=== PATIENT | male | born 1980 | race Caucasian/White ===

== ENCOUNTER 2017-09-26 10:25 | Emergency (ER) | payer MEDICAID ==
[~2017-09-26] VITALS: Ht 185.4 cm; Wt 86.4 kg
[~2017-09-26 10:25] MED LIST: ALBU8.5H5 INH; AMOX1TAB64 PO; HYDR-3240 PO; RIVA10TA PO; WARF10TA PO
[2017-09-26] MEDS ORDERED: ARIP10TA33 PO (11:16)
[2017-09-26] MEDS ORDERED: LORazepam 2 MG/ML, 1ML IVPush ONE (12:00)
[2017-09-26] MEDS ORDERED: SODIUM CHLORIDE FLUSH 10ML SYR IVF ONE (12:00)
[2017-09-26] MEDS ORDERED: ONDANSETRON 2MG/ML, 2ML IVPush ONE (12:00)
[2017-09-26] MEDS ORDERED: SODIUM CHLORIDE 0.9% 1,000ML IVBOLUS ONE (12:00)
[2017-09-26] MEDS ORDERED: LORazepam 2 MG/ML, 1ML ONE (12:17)
[2017-09-26] MEDS ORDERED: ONDANSETRON 2MG/ML, 2ML ONE (12:17)
[2017-09-26 12:51] LABS: INTERNATIONAL NORMALIZED RATIO 1.12 (0.93-1.1); PROTHROMBIN TIME 11.6 Seconds (9.6-11.5)
[2017-09-26 12:57] LABS: MICROSCOPIC NOT IND
[2017-09-26 12:57] LABS: ALBUMIN 3.7 g/dL (3.4-5.0); ANION GAP 14 mmol/L (5-15); CALCIUM 8.7 mg/dL (8.5-10.1); CHLORIDE 94 mmol/L (98-107)
[2017-09-26 13:00] LABS: ALANINE AMINOTRANSFERASE 40 U/L (12-78); ALKALINE PHOSPHATASE 94 U/L (45-117); BILIRUBIN,TOTAL 0.9 mg/dL (0.2-1.0); TOTAL PROTEIN 7.6 g/dL (6.4-8.2)
[2017-09-26 13:01] LABS: ACETONE, SERUM Negative (Negative)
[2017-09-26 13:04] LABS: CULTURE INDICATED? NO
[2017-09-26 13:24] LABS: BASOPHILS # (AUTO) 0.03 x10^3/uL (0-0.1); BASOPHILS % (AUTO) 0 % (0-1); EOSINOPHILS % (AUTO) 0 % (1-7); LYMPHOCYTES # (AUTO) 2.25 x10^3/uL (1-3.4); LYMPHOCYTES % (AUTO) 28 % (22-44); MD NO; MEAN CORPUSCULAR HEMOGLOBIN 31.5 pg (27.5-34.5); MEAN CORPUSCULAR HGB CONC 34.4 g/dL (33.2-36.2); MEAN CORPUSCULAR VOLUME 91.6 fL (81-97); MEAN PLATELET VOLUME 9.5 fL (7.4-10.4); MONOCYTES # (AUTO) 0.61 x10^3/uL (0.2-0.8); MONOCYTES % (AUTO) 8 % (2-9); NEUTROPHILS # (AUTO) 5.16 x10^3/uL (1.8-6.8); NEUTROPHILS % (AUTO) 64 % (42-75); PLATELET COUNT 175 x10^3/uL (130-400); RED BLOOD COUNT 5.64 x10^6/uL (4.38-5.82); RED CELL DISTRIBUTION WIDTH 12.8 % (9.4-14.8)
[2017-09-26] MEDS ORDERED: LORazepam 1MG TABLET ONE (13:25)
[2017-09-26] MEDS ORDERED: POTASSIUM CHLORIDE 20 MEQ TAB.ER.PRT ONE (13:25)
[2017-09-26] MEDS ORDERED: LORazepam 1MG TABLET PO ONE (13:30)
[2017-09-26] MEDS ORDERED: POTASSIUM CHLORIDE 20 MEQ TAB.ER.PRT PO ONE (13:30)
[2017-09-26] MEDS ORDERED: SODIUM CHLORIDE 0.9% 1,000 ML IV ONE (13:30)
[2017-09-26 14:29] VITALS: BP 119/69
== END 2017-09-26 14:42 | disposition home or self-care (01) ==
LOC: ED 11:14
DX: F10.239 Alcohol dependence with withdrawal, unspecified (principal); R45.1 Restlessness and agitation; E86.0 Dehydration; E87.6 Hypokalemia; Z86.711 Personal history of pulmonary embolism; Z86.718 Personal history of other venous thrombosis and embolism
CPT/HCPCS: 36415; 80053; 81003; 82010; 83605; 83690; 85025; 85610; 93005; 96361; 96374; 96375; 99285; J2060; J2405; J7030

== ENCOUNTER 2017-11-22 15:04 | Emergency (ER) | payer MEDICAID ==
[~2017-11-22] VITALS: Ht 185.4 cm; Wt 84.6 kg
[~2017-11-22 15:04] MED LIST changes: +ARIP10TA33 PO
[2017-11-22 15:10] VITALS: BP 144/96
[2017-11-22] MEDS ORDERED: THIAMINE 100MG TABLET PO ONE (16:00)
== END 2017-11-22 16:06 | disposition left against medical advice (07) ==
LOC: ED 16:00
DX: F10.129 Alcohol abuse with intoxication, unspecified (principal)
CPT/HCPCS: 99283

== ENCOUNTER 2018-03-10 15:40 | Emergency (ER) | payer MEDICAID ==
[~2018-03-10] VITALS: Ht 185.4 cm; Wt 87.5 kg
[2018-03-10] MEDS ORDERED: LORazepam 2 MG/ML, 1ML ONE (16:26)
[2018-03-10] MEDS ORDERED: ONDANSETRON 2MG/ML, 2ML ONE (16:26)
[2018-03-10] MEDS ORDERED: SODIUM CHLORIDE FLUSH 10ML SYR IVF ONE (16:30)
[2018-03-10] MEDS ORDERED: FOLIC ACID 1 MG TABLET PO ONE (16:30)
[2018-03-10] MEDS ORDERED: SODIUM CHLORIDE 0.9% 1,000ML IVBOLUS ONE ×2 (16:30→17:30)
[2018-03-10] MEDS ORDERED: THIAMINE 100MG TABLET PO ONE (16:30)
[2018-03-10] MEDS ORDERED: LORazepam 2 MG/ML, 1ML IVPush ONE (16:30)
[2018-03-10] MEDS ORDERED: ONDANSETRON 2MG/ML, 2ML IVPush ONE (16:30)
[2018-03-10 16:37] LABS: BASOPHILS # (AUTO) 0.04 x10^3/uL (0-0.1); BASOPHILS % (AUTO) 1 % (0-1); EOSINOPHILS # (AUTO) 0.02 x10^3/uL (0-0.4); EOSINOPHILS % (AUTO) 0 % (1-7); LYMPHOCYTES # (AUTO) 2.78 x10^3/uL (1-3.4); LYMPHOCYTES % (AUTO) 29 % (22-44); MD NO; MEAN CORPUSCULAR HEMOGLOBIN 31.8 pg (27.5-34.5); MEAN CORPUSCULAR HGB CONC 33.4 g/dL (33.2-36.2); MEAN CORPUSCULAR VOLUME 95.4 fL (81-97); MEAN PLATELET VOLUME 8.6 fL (7.4-10.4); MONOCYTES # (AUTO) 0.64 x10^3/uL (0.2-0.8); MONOCYTES % (AUTO) 7 % (2-9); NEUTROPHILS # (AUTO) 6.28 x10^3/uL (1.8-6.8); NEUTROPHILS % (AUTO) 64 % (42-75); PLATELET COUNT 219 x10^3/uL (130-400); RED BLOOD COUNT 5.97 x10^6/uL (4.38-5.82); RED CELL DISTRIBUTION WIDTH 13.3 % (9.4-14.8)
[2018-03-10] MEDS ORDERED: FOLIC ACID 1 MG TABLET ONE (16:39)
[2018-03-10] MEDS ORDERED: THIAMINE 100MG TABLET ONE (16:39)
[2018-03-10 16:47] LABS: ALANINE AMINOTRANSFERASE 49 U/L (12-78); ALBUMIN 3.8 g/dL (3.4-5.0); ANION GAP 10 mmol/L (5-15); CALCIUM 8.9 mg/dL (8.5-10.1); CHLORIDE 104 mmol/L (98-107); CREATININE 1.03 mg/dL (0.7-1.3)
[2018-03-10 16:50] LABS: ALKALINE PHOSPHATASE 166 U/L (45-117); BILIRUBIN,TOTAL 0.5 mg/dL (0.2-1.0); TOTAL PROTEIN 8.5 g/dL (6.4-8.2)
[2018-03-10 17:54] VITALS: BP 142/88
== END 2018-03-10 18:33 | disposition home or self-care (01) ==
LOC: ED 18:05
DX: F10.220 Alcohol dependence with intoxication, uncomplicated (principal); F19.129 Other psychoactive substance abuse with intoxication, unspecified; J45.909 Unspecified asthma, uncomplicated; Z79.899 Other long term (current) drug therapy
CPT/HCPCS: 36415; 80053; 80307; 83690; 85025; 93005; 96374; 96375; 99285; J2060; J2405; J7030

== ENCOUNTER 2018-04-29 10:59 | Emergency (ER) | payer MEDICAID ==
[~2018-04-29] VITALS: Ht 182.9 cm; Wt 90.7 kg
[2018-04-29 11:03] VITALS: BP 139/98
[2018-04-29] MEDS ORDERED: THIAMINE 100MG TABLET PO ONE (11:30)
[2018-04-29] MEDS ORDERED: FOLIC ACID 1 MG TABLET PO ONE (11:30)
[2018-04-29] MEDS ORDERED: LORazepam 1MG TABLET PO ONE (11:30)
[2018-04-29] MEDS ORDERED: THIAMINE 100MG TABLET ONE (11:54)
[2018-04-29] MEDS ORDERED: LORazepam 1MG TABLET ONE (11:54)
[2018-04-29 12:21] LABS: BASOPHILS # (AUTO) 0.05 x10^3/uL (0-0.1); BASOPHILS % (AUTO) 1 % (0-1); EOSINOPHILS # (AUTO) 0.09 x10^3/uL (0-0.4); EOSINOPHILS % (AUTO) 1 % (1-7); LYMPHOCYTES # (AUTO) 1.45 x10^3/uL (1-3.4); LYMPHOCYTES % (AUTO) 22 % (22-44); MD NO; MEAN CORPUSCULAR HEMOGLOBIN 32.9 pg (27.5-34.5); MEAN CORPUSCULAR HGB CONC 34.3 g/dL (33.2-36.2); MEAN CORPUSCULAR VOLUME 95.8 fL (81-97); MEAN PLATELET VOLUME 10.1 fL (7.4-10.4); MONOCYTES # (AUTO) 0.65 x10^3/uL (0.2-0.8); MONOCYTES % (AUTO) 10 % (2-9); NEUTROPHILS # (AUTO) 4.49 x10^3/uL (1.8-6.8); NEUTROPHILS % (AUTO) 67 % (42-75); PLATELET COUNT 107 x10^3/uL (130-400); RED BLOOD COUNT 4.33 x10^6/uL (4.38-5.82); RED CELL DISTRIBUTION WIDTH 14.2 % (9.4-14.8)
[2018-04-29 12:26] LABS: CHLORIDE 101 mmol/L (98-107)
[2018-04-29 12:34] LABS: ALBUMIN 3.2 g/dL (3.4-5.0); ALKALINE PHOSPHATASE 103 U/L (45-117); ANION GAP 9 mmol/L (5-15); CALCIUM 8.4 mg/dL (8.5-10.1); CREATININE 0.93 mg/dL (0.7-1.3); TOTAL PROTEIN 6.8 g/dL (6.4-8.2)
[2018-04-29 12:41] LABS: ALANINE AMINOTRANSFERASE 71 U/L (12-78)
[2018-04-29] MEDS ORDERED: CHLORDIAZEPOXIDE 25 MG CAPSULE ONE (12:58)
[2018-04-29] MEDS ORDERED: CHLORDIAZEPOXIDE 25 MG CAPSULE PO PRN (13:00)
== END 2018-04-29 13:34 | disposition home or self-care (01) ==
LOC: ED 13:28
DX: F10.239 Alcohol dependence with withdrawal, unspecified (principal); F41.9 Anxiety disorder, unspecified; M87.9 Osteonecrosis, unspecified; J45.909 Unspecified asthma, uncomplicated; Z79.899 Other long term (current) drug therapy; Z86.711 Personal history of pulmonary embolism; Z90.89 Acquired absence of other organs
CPT/HCPCS: 36415; 74018; 80053; 80307; 85025; 99285

== ENCOUNTER 2018-06-08 14:26 | Emergency (ER) | payer MEDICAID ==
[~2018-06-08] VITALS: Ht 185.4 cm; Wt 85.0 kg
[2018-06-08 14:32] VITALS: BP 128/82
== END 2018-06-08 17:59 | disposition home or self-care (01) ==
LOC: ED 17:53
DX: F10.129 Alcohol abuse with intoxication, unspecified (principal); R51 Headache
CPT/HCPCS: 70450; 99284

== ENCOUNTER 2018-06-26 10:30 | Emergency (ER) | payer MEDICAID ==
[~2018-06-26] VITALS: Ht 185.4 cm; Wt 89.0 kg
[2018-06-26 14:44] VITALS: BP 106/79
== END 2018-06-26 14:47 | disposition home or self-care (01) ==
LOC: ED 10:57
DX: F10.129 Alcohol abuse with intoxication, unspecified (principal); J45.909 Unspecified asthma, uncomplicated
CPT/HCPCS: 70450; 93005; 99284

== ENCOUNTER 2018-07-17 20:00 | Emergency (ER) | payer MEDICAID ==
[~2018-07-17] VITALS: Ht 182.9 cm; Wt 87.0 kg
[2018-07-18 02:05] VITALS: BP 148/96
== END 2018-07-18 03:30 | disposition home or self-care (01) ==
LOC: ED 20:46
DX: F10.129 Alcohol abuse with intoxication, unspecified (principal); J45.909 Unspecified asthma, uncomplicated; F12.10 Cannabis abuse, uncomplicated; Z87.19 Personal history of other diseases of the digestive system; Z86.711 Personal history of pulmonary embolism; Z86.718 Personal history of other venous thrombosis and embolism; Z90.49 Acquired absence of other specified parts of digestive tract; Y90.9 Presence of alcohol in blood, level not specified
CPT/HCPCS: 99283

== ENCOUNTER 2018-08-11 12:22 | Emergency (ER) | payer MEDICAID ==
[~2018-08-11] VITALS: Ht 185.4 cm; Wt 90.0 kg
[2018-08-11] MEDS ORDERED: PROMETHAZINE 25 MG/ML, 1ML IM ONE (13:00)
[2018-08-11] MEDS ORDERED: MAGNESIUM SULFATE 1 GM, THIAMINE 100 MG, FOLIC ACID 1 MG, MVI ADULT 10 ML in SODIUM CHL... IV ONE (13:00)
[2018-08-11] MEDS ORDERED: SODIUM CHLORIDE FLUSH 10ML SYR IVF ONE (13:00)
[2018-08-11 13:04] LABS: BASOPHILS # (AUTO) 0.03 x10^3/uL (0-0.1); BASOPHILS % (AUTO) 0 % (0-1); EOSINOPHILS % (AUTO) 0 % (1-7); LYMPHOCYTES # (AUTO) 1.65 x10^3/uL (1-3.4); LYMPHOCYTES % (AUTO) 13 % (22-44); MD NO; MEAN CORPUSCULAR HEMOGLOBIN 33.4 pg (27.5-34.5); MEAN CORPUSCULAR HGB CONC 33.8 g/dL (33.2-36.2); MEAN PLATELET VOLUME 8.3 fL (7.4-10.4); MONOCYTES # (AUTO) 0.91 x10^3/uL (0.2-0.8); MONOCYTES % (AUTO) 7 % (2-9); NEUTROPHILS # (AUTO) 10.41 x10^3/uL (1.8-6.8); NEUTROPHILS % (AUTO) 80 % (42-75); PLATELET COUNT 379 x10^3/uL (130-400); RED BLOOD COUNT 4.76 x10^6/uL (4.38-5.82); RED CELL DISTRIBUTION WIDTH 16.7 % (9.4-14.8)
[2018-08-11 13:11] LABS: ALBUMIN 2.5 g/dL (3.4-5.0); CALCIUM 7.8 mg/dL (8.5-10.1); CHLORIDE 92 mmol/L (98-107); CREATININE 0.98 mg/dL (0.7-1.3)
[2018-08-11 13:17] LABS: ANION GAP 16 mmol/L (5-15)
[2018-08-11] MEDS ORDERED: PROMETHAZINE 25 MG/ML, 1ML ONE (13:35)
[2018-08-11] MEDS ORDERED: POTASSIUM CHLORIDE 20 MEQ TAB.ER.PRT ONE (13:45)
[2018-08-11 13:53] LABS: MICROSCOPIC AUTO
[2018-08-11 13:54] LABS: CULTURE INDICATED? YES
[2018-08-11] MEDS ORDERED: POTASSIUM CHLORIDE 20 MEQ TAB.ER.PRT PO ONE (14:00)
[2018-08-11] MEDS ORDERED: POTASSIUM CHLORIDE 20 MEQ in SODIUM CHLORIDE 0.9% 250 ML IV ONE (14:00)
[2018-08-11 15:38] VITALS: BP 132/78
== END 2018-08-11 16:01 | disposition home or self-care (01) ==
LOC: ED 12:34
DX: F10.220 Alcohol dependence with intoxication, uncomplicated (principal); E87.6 Hypokalemia; Z71.9 Counseling, unspecified
CPT/HCPCS: 36415; 80048; 80307; 81001; 82040; 82962; 83690; 83735; 85025; 87086; 96365; 96366; 96368; 96372; 99283; J2550; J3411; J3475; J3480; J7030; J7050